=== PATIENT | male | born 1985 | race African-American/Black ===

== ENCOUNTER 2018-01-23 09:22 | Emergency (ER) | payer SELFPAY ==
[2018-01-23 10:11] LABS: BILIRUBIN,URINE NEGATIVE (NEG); COLOR,URINE YELLOW; GLUCOSE,URINE NEGATIVE (NEG); NITRITE,URINE NEGATIVE (NEG); PROTEIN,URINE NEGATIVE (NEG-TRACE)
[2018-01-23 10:19] LABS: CLARITY,URINE CLEAR; SQUAMOUS EPITHELIAL CELL,UR OCC /LPF
[2018-01-23 10:20] LABS: BACTERIA,URINE FEW /HPF (0-FEW)
[2018-01-23] MEDS: AZITHROMYCIN 250 MG TABLET. PO (12:16)
[2018-01-23] MEDS: cefTRIAXone IM 250 MG VIAL IM (12:17)
== END 2018-01-23 12:40 | disposition home or self-care (01) ==
LOC: ER 12:40
DX: R30.0 Dysuria (principal); E86.0 Dehydration; R35.0 Frequency of micturition
CPT/HCPCS: 81001; 87491; 87591; 96372; 99284; J0696; Q0144

== ENCOUNTER 2019-02-10 09:40 | Emergency (ER) | payer SELFPAY ==
[~2019-02-10] VITALS: Ht 172.7 cm; Wt 75.7 kg
[2019-02-10 09:51] VITALS: BP 149/91
--- NOTE | 2019-02-10 10:04 | PHYS DOC ---
Past Medical History Past Medical History: No Pertinent History Past Surgical History: Other Additional Past Surgical Histo: Hernia Alcohol Use: Occasionally Drug Use: None Adult General Chief Complaint Chief Complaint: PAIN ON URINATION [facility] HPI Patient is a 33 year old male who presents with burning with urination and frequency for 3-4 days. Patient denies abdominal pain, nausea, vomiting, fever, diarrhea, sexually transmitted diseases, penile discharge. Pain is only with urination. Patient denies any pain at this time. Review of Systems Review of Systems Constitutional: Denies fever or chills [] Eyes: Denies change in visual acuity, redness, or eye pain [] HENT: Denies nasal congestion or sore throat [] Respiratory: Denies cough or shortness of breath [] Cardiovascular: No additional information not addressed in HPI [] GI: Denies abdominal pain, nausea, vomiting, bloody stools or diarrhea [] : dysuria or denies hematuria [] Musculoskeletal: Denies back pain or joint pain [] Integument: Denies rash or skin lesions [] Neurologic: Denies headache, focal weakness or sensory changes [] Endocrine: Denies polyuria or polydipsia [] All other systems were reviewed and found to be within normal limits, except as documented in this note. Allergies Allergies Allergies Coded Allergies Type Severity Reaction Last Updated Verified No Known Drug Allergies 01/23/18 No Physical Exam Physical Exam Constitutional: Well developed, well nourished, no acute distress, non-toxic appearance. [] HENT: Normocephalic, atraumatic, bilateral external ears normal, oropharynx moist, no oral exudates, nose normal. [] Eyes: PERRLA, EOMI, conjunctiva normal, no discharge. [] Neck: Normal range of motion, no tenderness, supple, no stridor. [] Cardiovascular:Heart rate regular rhythm, no murmur [] Lungs & Thorax: Bilateral breath sounds clear to auscultation [] Abdomen: Bowel sounds normal, soft, no tenderness, no masses, no pulsatile masses. [] Skin: Warm, dry, no erythema, no rash. [] Back: No tenderness, no CVA tenderness. [] Extremities: No tenderness, no cyanosis, no clubbing, ROM intact, no edema. [] Neurologic: Alert and oriented X 3, normal motor function, normal sensory function, no focal deficits noted. [] Psychologic: Affect normal, judgement normal, mood normal. Normal Physical Exam [] Current Patient Data Vital Signs Vital Signs Date Time Temp Pulse Resp B/P (MAP) Pulse Ox O2 Delivery O2 Flow Rate FiO2 02/10/19 09:51 98.2 78 16 149/91 (110) 99 Room Air 98.2 Lab Values Laboratory Tests Test 02/10/19 09:55 Urine Collection Type Unknown Urine Color Yellow Urine Clarity Clear Urine pH 5.5 Urine Specific [place] 1.020 Urine Protein Negative mg/dL (NEG-TRACE) Urine Glucose (UA) Negative mg/dL (NEG) Urine Ketones (Stick) Negative mg/dL (NEG) Urine Blood Moderate (NEG) Urine Nitrite Negative (NEG) Urine Bilirubin Negative (NEG) Urine Urobilinogen Dipstick 0.2 mg/dL (0.2 mg/dL) Urine Leukocyte Esterase Negative (NEG) Urine RBC 3-5 /HPF (0-2) Urine WBC 1-4 /HPF (0-4) Urine Squamous Epithelial Cells Occ /LPF Urine Bacteria Few /HPF (0-FEW) Urine Mucus Marked /LPF EKG EKG [] Radiology/Procedures Radiology/Procedures [] Course & Med Decision Making Course & Med Decision Making Patient is a 33 year old male who presents with burning with urination and frequency for 3-4 days. Patient denies abdominal pain, nausea, vomiting, fever, diarrhea, sexually transmitted diseases concerns, penile discharge, blood in urine. No CVA tenderness. Pain is only with urination. Patient denies any pain at this time. Alert and oriented. Speaks in full clear sentences. Mucus Membranes are moist. Vital signs within normal limits. Lungs are clear to auscultation in all lobes. Skin is pink warm and dry. Abdomen is soft and nontender. Urine has blood and white blood cells. Patient will be treated for his urinary tract symptoms. Patient to drink any fluids and take medication as prescribed. Patient should follow-up with a primary care provider for any better. Dragon Disclaimer Dragon Disclaimer This electronic medical record was generated, in whole or in part, using a voice recognition dictation system. Departure Departure Impression: Primary Impression: Urinary tract infection symptoms Disposition: 01 HOME, SELF-CARE Condition: STABLE Referrals: NO PCP (PCP) Patient Instructions: Urinary Frequency, Urinary Tract Infection Additional Instructions: Follow up with primary care. Take medication as prescribed. Drink plenty of water. Scripts Sulfamethoxazole/Trimethoprim (BACTRIM DS TABLET) 1 Each Tablet 1 TAB PO BID, #14 TAB Prov: FELICITAS PEREZ APRN 02/10/19 FELICITAS PEREZ APRN Feb 10, 2019 10:04
[2019-02-10 10:14] LABS: BILIRUBIN,URINE NEGATIVE (NEG); CLARITY,URINE CLEAR; COLOR,URINE YELLOW; NITRITE,URINE NEGATIVE (NEG); PH,URINE 5.5; PROTEIN,URINE NEGATIVE (NEG-TRACE); UROBILINOGEN,URINE 0.2 mg/dL (0.2 mg/dL)
[2019-02-10 10:32] LABS: BACTERIA,URINE FEW /HPF (0-FEW)
[2019-02-10 10:33] LABS: SQUAMOUS EPITHELIAL CELL,UR OCC /LPF
[2019-02-10] MEDS ORDERED: SULF1TAB24 PO (10:40)
== END 2019-02-10 10:45 | disposition home or self-care (01) ==
LOC: ER 09:40
DX: N39.0 Urinary tract infection, site not specified (principal)
CPT/HCPCS: 81001; 99283

== ENCOUNTER 2019-06-24 12:04 | Emergency (ER) | payer SELFPAY ==
[~2019-06-24] VITALS: Ht 172.7 cm; Wt 78.0 kg
[~2019-06-24 12:04] MED LIST: SULF1TAB24 PO
[2019-06-24 12:45] VITALS: BP 139/91
[2019-06-24] MEDS ORDERED: CLOT15CR4 TP (14:43)
--- NOTE | 2019-06-24 14:44 | PHYS DOC ---
Past Medical History Past Medical History: No Pertinent History Past Surgical History: Other Additional Past Surgical Histo: Hernia Alcohol Use: Occasionally Drug Use: Marijuana Adult General Chief Complaint Chief Complaint: SKIN PROBLEM HPI HPI Patient is a 34 year old male who presents to the emergency department with complaints of a red itchy rash in his bilateral groin off-and-on for the last year. Patient states it is flared up again and he has a similar rash under his left axilla. Patient states that the skin is tender to touch. He thinks he has jock itch. Patient currently rates the pain a 2 out of 10 on the pain scale, he denies any alleviating or exacerbating factors. ROS Patient denies any fever, cough, shortness breath, ear pain, sore throat, abdominal pain, lower extremity swelling, nausea, vomiting, diarrhea, or abdominal pain. He denies any dysuria, increased urinary frequency, hematuria, or irregular penile discharge. He denies the use of any new medications, shampoos, detergents, or fragrances. Review of Systems Review of Systems Constitutional: Denies fever or chills [] Eyes: Denies change in visual acuity, redness, or eye pain [] HENT: Denies nasal congestion or sore throat [] Respiratory: Denies cough or shortness of breath [] Cardiovascular: No additional information not addressed in HPI [] GI: Denies abdominal pain, nausea, vomiting, bloody stools or diarrhea [] : Denies dysuria or hematuria [] Musculoskeletal: Denies back pain or joint pain [] Integument: Denies rash or skin lesions [] Neurologic: Denies headache, focal weakness or sensory changes [] Endocrine: Denies polyuria or polydipsia [] All other systems were reviewed and found to be within normal limits, except as documented in this note. Allergies Allergies Allergies Coded Allergies Type Severity Reaction Last Updated Verified No Known Drug Allergies 01/23/18 No Physical Exam Physical Exam Constitutional: Well developed, well nourished, no acute distress, non-toxic appearance. [] HENT: Normocephalic, atraumatic, bilateral external ears normal, oropharynx m oist, no oral exudates, nose normal. [] Eyes: PERRLA, EOMI, conjunctiva normal, no discharge. [] Neck: Normal range of motion, no tenderness, supple, no stridor. [] Cardiovascular:Heart rate regular rhythm Lungs & Thorax: Respirations even and unlabored, no retractions, no respiratory distress Skin: Warm, dry; red, beefy, rash noted in the bilateral groins and left axilla with satellite lesions consistent with skin melanie Extremities: No cyanosis, no clubbing, ROM intact, no edema. [] Neurologic: Alert and oriented X 3, no focal deficits noted. [] Psychologic: Affect normal, judgement normal, mood normal. [] Current Patient Data Vital Signs Vital Signs Date Time Temp Pulse Resp B/P (MAP) Pulse Ox O2 Delivery O2 Flow Rate FiO2 06/24/19 12:45 98.6 71 16 139/91 (107) 100 Room Air 98.6 EKG EKG [] Radiology/Procedures Radiology/Procedures [] Course & Med Decision Making Course & Med Decision Making Pertinent Labs and Imaging studies reviewed. (See chart for details) [] Dragon Disclaimer Dragon Disclaimer This electronic medical record was generated, in whole or in part, using a voice recognition dictation system. Departure Departure Impression: Primary Impression: Jock itch Additional Impression: Melanie infection of flexural skin Disposition: HOME, SELF-CARE Condition: STABLE Referrals: NO PCP (PCP) Patient Instructions: Jock Itch, [id number] Additional Instructions: Fill prescription and use as directed. Wear loose fitting clothes and boxer shorts. Powder your groin and armpits to help reduce moisture. Wash with antibacterial soap. Follow up with your primary care doctor if symptoms persist, return to the ER if symptoms worsen. Scripts Clotrimazole (CLOTRIMAZOLE) 15 Gm Cream..g. 1 MIGUEL ANGEL TP BID for 14 Days, #45 GM 0 Refills Prov: NURY RAYO COMMUNICATIONS SUPERINTENDENT 06/24/19 Problem Qualifiers NURY RAYO COMMUNICATIONS SUPERINTENDENT Jun 24, 2019 14:44
== END 2019-06-24 14:49 | disposition home or self-care (01) ==
LOC: ER 12:04
DX: B35.6 Tinea cruris (principal); B37.2 Candidiasis of skin and nail
CPT/HCPCS: 99282

== ENCOUNTER 2020-10-10 01:25 | Emergency (ER) | payer SELFPAY ==
[~2020-10-10] VITALS: Ht 175.3 cm; Wt 77.0 kg
[~2020-10-10 01:25] MED LIST changes: +CLOT15CR23 TP
[2020-10-10 01:40] VITALS: BP 158/101
[2020-10-10] MEDS ORDERED: AZITHROMYCIN 250 MG TABLET. PO ONE (02:30)
[2020-10-10] MEDS ORDERED: cefTRIAXone IM 250 MG VIAL IM ONE (02:30)
--- NOTE | 2020-10-10 02:34 | PHYS DOC ---
Past Medical History Past Medical History: UTI Past Surgical History: Other Additional Past Surgical Histo: Hernia Smoking Status: Former Smoker Alcohol Use: Occasionally Drug Use: Marijuana General Adult EDM: Chief Complaint: SEXUALLY TRANSMITTED DISEASE HPI: HPI: Patient is a 35 year old male presented to ER today for evaluation 2-day history of burning with urination and penile discharge. Patient recently had new sexual partner. He denies any fever, no abdominal pain, no nausea vomiting. Review of Systems: Review of Systems: Constitutional: Denies fever or chills. [] Eyes: Denies change in visual acuity. [] HENT: Denies nasal congestion or sore throat. [] Respiratory: Denies cough or shortness of breath. [] Cardiovascular: Denies chest pain or edema. [] GI: Denies abdominal pain, nausea, vomiting, bloody stools or diarrhea. [] : Positive for dysuria and penile discharge. Musculoskeletal: Denies back pain or joint pain. [] Integument: Denies rash. [] Neurologic: Denies headache, focal weakness or sensory changes. [] Endocrine: Denies polyuria or polydipsia. [] Lymphatic: Denies swollen glands. [] Psychiatric: Denies depression or anxiety. [] Heart Score: Risk Factors: Risk Factors: DM, Current or recent (<one month) smoker, HTN, HLP, family history of CAD, obesity. Risk Scores: Score 0 - 3: 2.5% MACE over next 6 weeks - Discharge Home Score 4 - 6: 20.3% MACE over next 6 weeks - Admit for Clinical Observation Score 7 - 10: 72.7% MACE over next 6 weeks - Early Invasive Strategies Current Medications: Current Medications Medications (Trade) Dose Ordered Sig/Clarissa Start Time Stop Time Status Last Admin Dose Admin Azithromycin (Zithromax) 1,000 mg 1X ONCE 10/10/20 02:30 10/10/20 02:31 UNV Ceftriaxone Sodium (Rocephin Im) 250 mg 1X ONCE 10/10/20 02:30 10/10/20 02:31 UNV Allergies: Allergies: Allergies Coded Allergies Type Severity Reaction Last Updated Verified No Known Drug Allergies 01/23/18 No Physical Exam: PE: Constitutional: Well developed, well nourished, no acute distress, non-toxic appearance. [] HENT: Normocephalic, atraumatic, bilateral external ears normal, oropharynx moist, no oral exudates, nose normal. [] Eyes: PERRLA, EOMI, conjunctiva normal, no discharge. [] Neck: Normal range of motion, no tenderness, supple, no stridor. [] Abdomen: Bowel sounds normal, soft, no tenderness, no masses, no pulsatile masses. [] Skin: Warm, dry, no erythema, no rash. [] Back: No tenderness, no CVA tenderness. [] Extremities: No tenderness, no cyanosis, no clubbing, ROM intact, no edema. [] Neurologic: Alert and oriented X 3, normal motor function, normal sensory function, no focal deficits noted. [] Psychologic: Affect normal, judgement normal, mood normal. [] Current Patient Data: Vital Signs: Vital Signs Date Time Temp Pulse Resp B/P (MAP) Pulse Ox O2 Delivery O2 Flow Rate FiO2 10/10/20 01:40 98.3 71 15 158/101 (120) Room Air 98.3 EKG: EKG: [] Radiology/Procedures: Radiology/Procedures: [] Course & Med Decision Making: Course & Med Decision Making Pertinent Labs and Imaging studies reviewed. (See chart for details) [] Dragon Disclaimer: Dragon Disclaimer: This electronic medical record was generated, in whole or in part, using a voice recognition dictation system. Departure Departure Impression: Primary Impression: STD (male) Disposition: 01 DC HOME SELF CARE/HOMELESS Condition: STABLE Referrals: NO PCP (PCP) FOLLOW UP WITH THE LOCAL HEALTH DEPARTMENT Patient Instructions: Sexually Transmitted Disease WALLACE VARGAS DO Oct 10, 2020 02:34
[2020-10-10 02:42] LABS: BILIRUBIN,URINE NEGATIVE (NEG); CLARITY,URINE CLOUDY; COLOR,URINE YELLOW; NITRITE,URINE NEGATIVE (NEG); PROTEIN,URINE NEGATIVE (NEG-TRACE); UROBILINOGEN,URINE 0.2 mg/dL (0.2 mg/dL)
[2020-10-10 02:47] LABS: BACTERIA,URINE 0 /HPF (0-FEW); RBC,URINE OCC /HPF (0-2); WBC,URINE 20-40 /HPF (0-4)
== END 2020-10-10 02:55 | disposition home or self-care (01) ==
LOC: ER 01:25
DX: A64 Unspecified sexually transmitted disease (principal); R30.9 Painful micturition, unspecified; R30.0 Dysuria; F12.90 Cannabis use, unspecified, uncomplicated; Z87.891 Personal history of nicotine dependence; Z98.890 Other specified postprocedural states
CPT/HCPCS: 81001; 87086; 96372; 99283; J0696

== ENCOUNTER 2020-10-25 09:16 | Emergency (ER) | payer SELFPAY ==
[~2020-10-25] VITALS: Ht 172.7 cm; Wt 77.0 kg
--- NOTE | 2020-10-25 09:47 | PHYS DOC ---
Past Medical History Past Medical History: UTI (ALEXANDER CULLEN APRN) Past Surgical History: Other Additional Past Surgical Histo: Hernia (ALEXANDER CULLEN APRN) Smoking Status: Former Smoker Alcohol Use: Occasionally Drug Use: Marijuana (ALEXANDER CULLEN APRN) General Adult EDM: Chief Complaint: URINARY RETENTION HPI: HPI: Patient is a 35-year-old male who presents to the ED today complaining of urinary hesitance for 2 weeks. Patient states anytime he has to void he either dribbles or gets small amount of urine and sometimes he has to push hard to void. Denies any dysuria. He states has been taking Azo with no relief. He states 2 weeks ago he was treated for STDs. Denies any STD concerns. (ALEXANDER CULLEN APRN) Review of Systems: Review of Systems: Constitutional: Denies fever or chills. [] Eyes: Denies change in visual acuity. [] HENT: Denies nasal congestion or sore throat. [] Respiratory: Denies cough or shortness of breath. [] Cardiovascular: Denies chest pain or edema. [] GI: Denies abdominal pain, nausea, vomiting, bloody stools or diarrhea. [] : Reports urinary hesitancy. Denies dysuria. [] Musculoskeletal: Denies back pain or joint pain. [] Integument: Denies rash. [] Neurologic: Denies headache, focal weakness or sensory changes. [] Psychiatric: Denies depression or anxiety. [] (ALEXANDER CULLEN APRN) Heart Score: Risk Factors: Risk Factors: DM, Current or recent (<one month) smoker, HTN, HLP, family history of CAD, obesity. Risk Scores: Score 0 - 3: 2.5% MACE over next 6 weeks - Discharge Home Score 4 - 6: 20.3% MACE over next 6 weeks - Admit for Clinical Observation Score 7 - 10: 72.7% MACE over next 6 weeks - Early Invasive Strategies (ALEXANDER CULLEN APRN) Allergies: Allergies: Allergies Coded Allergies Type Severity Reaction Last Updated Verified No Known Drug Allergies 01/23/18 No (ALEXANDER CULLEN APRN) Physical Exam: PE: Constitutional: Well developed, well nourished, no acute distress, non-toxic appearance. [] HENT: Normocephalic, atraumatic, bilateral external ears normal, oropharynx mo ist, no oral exudates, nose normal. [] Eyes: PERRLA, EOMI, conjunctiva normal, no discharge. [] Neck: Normal range of motion, no tenderness, supple, no stridor. [] Cardiovascular:Heart rate regular rhythm, no murmur [] Lungs & Thorax: Bilateral breath sounds clear to auscultation [] Abdomen: Bowel sounds normal, soft, no tenderness, no masses, no pulsatile masses. [] . Male prostate exam deferred Skin: Warm, dry, no erythema, no rash. [] Back: No tenderness, no CVA tenderness. [] Extremities: No tenderness, no cyanosis, no clubbing, ROM intact, no edema. [] Neurologic: Alert and oriented X 3, normal motor function, normal sensory function, no focal deficits noted. [] Psychologic: Affect normal, judgement normal, mood normal. [] (ALEXANDER CULLEN APRN) EKG: EKG: [] (ALEXANDER CULLEN APRN) Radiology/Procedures: Radiology/Procedures: []PROCEDURE: CT ABDOMEN PELVIS WO CONTRAST INDICATION: Reason: urinary hesitancy, / Spl. Instructions: / History: . COMPARISON: None. TECHNIQUE: Axial CT images obtained through the abdomen and pelvis with no contrast. One or more of the following individualized dose reduction techniques were utilized for this examination: 1. Automated exposure control; 2. Adjustment of the mA and/or kV according to patient size; 3. Use of iterative reconstruction technique. FINDINGS: Abdominal aorta is not aneurysmal. Small fat-containing inguinal hernia. No intrahepatic bile duct dilation. No peripancreatic fluid collection. Spleen unremarkable. No left-sided hydronephrosis. Urinary bladder has minimal urine within it at time of exam. No right-sided hydronephrosis. A definite radiopaque obstructive ureter stone is not seen. No dilated loops of bowel to suggest obstruction. Mild colonic diverticulosis. Appendix not well seen. No dilated loops of bowel to suggest obstruction. Degenerative changes at the sacroiliac joints. Mild wedging of multiple vertebral bodies including L1, T12, T11. Fusion defect at posterior aspect of the sacrum IMPRESSION: * No evidence of hydronephrosis or radiopaque obstructive ureter stone. * No evidence of bowel obstruction. Electronically signed by: Tonie Martinez MD (10/25/2020 10:44 AM) [id number] DICTATED and SIGNED BY: TONIE MARTINEZ MD DATE: 10/25/20 [id number] (ALEXANDER CULLEN APRN) Course & Med Decision Making: Course & Med Decision Making Pertinent Labs and Imaging studies reviewed. (See chart for details) This is a 35-year-old male patient presented to the ED today with urinary hesitancy for 2 weeks. He was treated for STDs last month. Urine analysis is negative for any acute findings, CBC, CMP with no acute findings, normal creatinine and BUN. CT of the abdomen and pelvic has no acute findings. At this point I recommended following up with a urologist. Provided Flomax prescription. (ALEXANDER CULLEN APRN) Dragon Disclaimer: Dragon Disclaimer: This electronic medical record was generated, in whole or in part, using a voice recognition dictation system. (ALEXANDER CULLEN APRN) Departure Departure Impression: Primary Impression: Urinary hesitancy Disposition: 01 DC HOME SELF CARE/HOMELESS Condition: STABLE Referrals: NO PCP (PCP) Follow-up with the urologist of your choice Patient Instructions: Urinary Frequency Additional Instructions: You were evaluated in the emergency room, your CAT scan of the abdomen and pelvis are negative for any acute findings, your lab work was negative for any acute findings. We recommend you follow-up with a urologist of your choice. [facility] has one. Take the prescribed medication as ordered it might help with your symptoms. Scripts Tamsulosin Hcl (FLOMAX) 0.4 Mg Cap.er.24h 1 CAP PO DAILY, #30 CAP 0 Refills Prov: ALEXANDER CULLEN APRN 10/25/20 ALEXANDER CULLEN APRN Oct 25, 2020 09:47 OLE AWAD MD Oct 26, 2020 19:13
[2020-10-25 09:54] LABS: BILIRUBIN,URINE NEGATIVE (NEG); CLARITY,URINE CLEAR; COLOR,URINE YELLOW; NITRITE,URINE NEGATIVE (NEG); PROTEIN,URINE NEGATIVE (NEG-TRACE)
[2020-10-25 10:22] LABS: CALCIUM 8.8 mg/dL (8.5-10.1); CREATININE 1.1 mg/dL (0.7-1.3); GFR 93.3; POTASSIUM 3.6 mmol/L (3.5-5.1)
[2020-10-25 10:30] LABS: ALBUMIN 4.1 g/dL (3.4-5.0); TOTAL BILIRUBIN 0.7 mg/dL (0.2-1.0); TOTAL PROTEIN 8.1 g/dL (6.4-8.2)
[2020-10-25 10:42] LABS: BASO # 0.1 x10^3/uL (0.0-0.2); BASO % 1 % (0-3); EOS # 0.2 x10^3/uL (0.0-0.7); EOS % 2 % (0-3); HEMATOCRIT 41.2 % (39.0-53.0); HEMOGLOBIN 13.5 g/dL (13.0-17.5); LYMPH # 1.4 x10^3/uL (1.0-4.8); LYMPH % 14 % (24-48); MEAN CORPUSCULAR HEMOGLOBIN 26 pg (25-35); MEAN CORPUSCULAR HGB CONC 33 g/dL (31-37); MEAN CORPUSCULAR VOLUME 80 fL (79-100); MONO % 10 % (0-9); NEUT # 7.3 x10^3/uL (1.8-7.7); NEUT % 73 % (31-73); PLATELET COUNT 183 x10^3/uL (140-400); RED BLOOD COUNT 5.14 x10^6/uL (4.30-5.70); RED CELL DISTRIBUTION WIDTH 14.5 % (11.5-14.5)
--- NOTE | 2020-10-25 10:47 | RAD ---
INDICATION: Reason: urinary hesitancy, / Spl. Instructions: / History: . COMPARISON: None. TECHNIQUE: Axial CT images obtained through the abdomen and pelvis with no contrast. One or more of the following individualized dose reduction techniques were utilized for this examination: 1. Automated exposure control; 2. Adjustment of the mA and/or kV according to patient size; 3. Use of iterative reconstruction technique. FINDINGS: Abdominal aorta is not aneurysmal. Small fat-containing inguinal hernia. No intrahepatic bile duct dilation. No peripancreatic fluid collection. Spleen unremarkable. No left-sided hydronephrosis. Urinary bladder has minimal urine within it at time of exam. No right-sided hydronephrosis. A definite radiopaque obstructive ureter stone is not seen. No dilated loops of bowel to suggest obstruction. Mild colonic diverticulosis. Appendix not well seen. No dilated loops of bowel to suggest obstruction. Degenerative changes at the sacroiliac joints. Mild wedging of multiple vertebral bodies including L1, T12, T11. Fusion defect at posterior aspect of the sacrum IMPRESSION: * No evidence of hydronephrosis or radiopaque obstructive ureter stone. * No evidence of bowel obstruction. Electronically signed by: Yomi Martinez MD (10/25/2020 10:44 AM) [id number]
[2020-10-25 10:50] LABS: BACTERIA,URINE 0 /HPF (0-FEW); RBC,URINE OCC /HPF (0-2); WBC,URINE OCC /HPF (0-4)
[2020-10-25 11:13] VITALS: BP 116/76
[2020-10-25] MEDS ORDERED: TAMS0.4C97 PO (11:21)
[2020-10-25 11:36] LABS: BARBITURATES NEG (NEG); BENZODIAZEPINES NEG (NEG); CANNABINOIDS POS (NEG); COCAINE NEG (NEG); METHADONE NEG (NEG); OPIATES NEG (NEG); PHENCYCLIDINE NEG (NEG)
[2020-10-25 11:37] LABS: AMPHETAMINE/METHAMPHETAMINE NEG (NEG)
== END 2020-10-25 11:36 | disposition home or self-care (01) ==
LOC: ER 09:16
DX: R39.11 Hesitancy of micturition (principal); R30.9 Painful micturition, unspecified; F12.90 Cannabis use, unspecified, uncomplicated; Z98.890 Other specified postprocedural states; Z87.891 Personal history of nicotine dependence
CPT/HCPCS: 36415; 74176; 80053; 80307; 81001; 83690; 85025; 87491; 87591; 99284; G0480